=== PATIENT | female | born 1980 | race Caucasian/White ===

== ENCOUNTER 2024-01-31 06:11 | Day surgery (SDC) | payer BC, OTHER ==
[2024-01-31] MEDS ORDERED: Ondansetron 4 MG/2 ML SDV IVPUSH ONE (06:12)
[2024-01-31] MEDS ORDERED: Propofol 200 MG/20 ML SDV IV ONE (06:12)
[2024-01-31] MEDS ORDERED: Lidocaine 2% 100 MG/5 ML Syringe IVPUSH ONE (06:12)
[2024-01-31] MEDS ORDERED: Sodium Chloride 0.9% 10 ML Syringe FLUSH PRN (06:15)
[2024-01-31] MEDS: Lactated Ringers 1,000 ML IV SCH (07:21)
[2024-01-31] MEDS: Simethicone Drops 40 MG/0.6 ML 30 ML Bottle ONE (07:36)
== END 2024-01-31 09:05 | disposition home or self-care (01) ==
LOC: FB.SDS 06:11
PROVIDERS: ATTEND Surgery
DX: Z12.11 Encounter for screening for malignant neoplasm of colon (principal); D12.0 Benign neoplasm of cecum; K57.30 Diverticulosis of large intestine without perforation or abscess without bleeding; Z80.0 Family history of malignant neoplasm of digestive organs; K21.9 Gastro-esophageal reflux disease without esophagitis; F17.210 Nicotine dependence, cigarettes, uncomplicated
CPT/HCPCS: 00811; 45385; 88305; A9270; J2405; J2704; J7120